=== PATIENT | male | born 2000 | race Hispanic/Latino ===

== ENCOUNTER → 2019-04-27 | Outpatient (CLI) | payer OTHER | END | disposition home or self-care (01) | LOC: RAH 11:18 | PROVIDERS: ATTEND Urology | DX: N13.2 Hydronephrosis with renal and ureteral calculous obstruction (principal); N32.89 Other specified disorders of bladder | CPT/HCPCS: 76770 ==

== ENCOUNTER 2019-05-06 07:18 | Day surgery (SDC) | payer OTHER ==
[2019-05-04 16:17] VITALS: BP 97/51
[2019-05-06] VITALS (12 sets, daily range): BP systolic 91–127; BP diastolic 39–79
[~2019-05-06] VITALS: Ht 177.8 cm; Wt 62.9 kg
[2019-05-06] MEDS: CEFAZOLIN SODIUM 1 GM VIAL IVP SCH ×2 (06:00→10:10)
[2019-05-06] MEDS ORDERED: IOHEXOL-350 50ML VIAL IV ONE (08:28)
[2019-05-06] MEDS ORDERED: LACTATED RINGERS 1000ML 1,000 ML IV ONE (09:21)
[2019-05-06] MEDS ORDERED: PROPOFOL 10 MG/ML 20ML VIAL IV ONE (10:03)
[2019-05-06] MEDS ORDERED: MIDAZOLAM HCL 1 MG/ML 2ML VIAL ONE (10:03)
[2019-05-06] MEDS ORDERED: FENTANYL CITRATE PF 50 MCG/1 ML 2ML VIAL ONE (10:03)
[2019-05-06] MEDS ORDERED: LIDOCAINE PF 2% 5ML ABBOJECT ONE (10:03)
[2019-05-06] MEDS ORDERED: DEXAMETHASONE SOD PHOSPHATE 10MG/ML 1ML VIAL ONE (10:17)
[2019-05-06] MEDS ORDERED: ONDANSETRON HCL 4 MG/2 ML VIAL ONE (10:18)
[2019-05-06] MEDS ORDERED: KETOROLAC TROMETHAMINE 15MG/ML ONE (10:32)
[2019-05-06] MEDS ORDERED: PHENAZOPYRIDINE HCL 200 MG TABLET ONE (12:07)
--- NOTE | 2019-05-06 12:15 | NUR ---
D/C PT LEFT VIA WHEELCHAIR WITH MOTHER IN PVT CAR. SCRIPT GIVEN TO MOM WITH NO PAIN AND D/C INSTRUCTION
== END 2019-05-06 12:30 ==
LOC: DAH 07:18
PROVIDERS: ATTEND Urology
DX: N13.2 Hydronephrosis with renal and ureteral calculous obstruction (principal); R06.83 Snoring
CPT/HCPCS: 52332; 74420; A4358; A4600; C1758; C1769; C2617; J0690; J1100; J1885; J2001; J2250; J2405; J2704; J3010; J7120 ×2; Q9967

== ENCOUNTER → 2020-09-04 | Outpatient (CLI) | payer OTHER | END | disposition home or self-care (01) | LOC: DAH 10:00 → EDSTATUS 11:00 | PROVIDERS: ATTEND Urology | DX: Z01.818 Encounter for other preprocedural examination (principal); N13.0 Hydronephrosis with ureteropelvic junction obstruction; U07.1 COVID-19 | CPT/HCPCS: C9803; U0003 ==

== ENCOUNTER 2020-10-22 10:11 | Day surgery (SDC) | payer OTHER ==
[2020-10-19 11:03] VITALS: BP 116/65
[2020-10-22] VITALS (18 sets, daily range): BP systolic 23–141; BP diastolic 49–86
[~2020-10-22] VITALS: Ht 175.3 cm; Wt 62.1 kg
[~2020-10-22 10:11] MED LIST: CEFTRIAXONE SODIUM 1 GM IVP SCH
[2020-10-22] MEDS ORDERED: LACTATED RINGERS 1000ML 1,000 ML IV ONE (10:55)
[2020-10-22] MEDS ORDERED: FENTANYL CITRATE PF 50 MCG/1 ML 2ML VIAL ONE (12:09)
[2020-10-22] MEDS ORDERED: PROPOFOL 10 MG/ML 20ML VIAL IV ONE ×2 (12:09→16:33)
[2020-10-22] MEDS ORDERED: ROCURONIUM 10MG/1ML SYR 10 MG/ML ML ONE (12:09)
[2020-10-22] MEDS ORDERED: LIDOCAINE PF 2% 5ML ABBOJECT ONE (12:09)
[2020-10-22] MEDS ORDERED: IOHEXOL-350 50ML VIAL IV ONE ×2 (12:28→16:06)
[2020-10-22] MEDS ORDERED: PHENYLEPHRINE HCL 10 MG/ML 1ML VIAL IV ONE (15:47)
[2020-10-22] MEDS ORDERED: SODIUM CHLORIDE 0.9% 10 ML VIAL ONE (15:47)
[2020-10-22] MEDS ORDERED: MEPERIDINE-PF 25 MG/ML SYG ONE (16:37)
[2020-10-22] MEDS ORDERED: ONDANSETRON HCL 4 MG/2 ML VIAL ONE (17:48)
--- NOTE | 2020-10-22 17:48 | NUR ---
ZOFRAN 4 MG GIVEN FOR NAUSEA. MED DOES NOT SHOW UP ON EMAR TO DOCUMENT.
[2020-10-22] MEDS ORDERED: PHENAZOPYRIDINE HCL 200 MG TABLET ONE (18:08)
--- NOTE | 2020-10-22 18:08 | NUR ---
PYRIDIUM 200MG GIVEN PO ORDERED, DOES NOT SHOW UP ON EMAR TO DOCUMENT.
== END 2020-10-22 18:35 | disposition home or self-care (01) ==
LOC: DAH 10:11
PROVIDERS: ATTEND Urology
DX: N13.2 Hydronephrosis with renal and ureteral calculous obstruction (principal); N13.1 Hydronephrosis with ureteral stricture, not elsewhere classified; Z20.828 Contact with and (suspected) exposure to other viral communicable diseases; N21.0 Calculus in bladder; Q62.11 Congenital occlusion of ureteropelvic junction
CPT/HCPCS: 36415; 50590; 52318; 52332; 74018; 74420; 82360; A4215; A4221; A4222; A4223; A4344; A4358; A4663; A4930; A6260; C1758; C1769 ×2; C2617; C9803; J0696; J2001; J2175; J2370; J2405; J2704 ×2; J3010; J7120 ×2; Q9967; U0003

== ENCOUNTER → 2020-11-14 | Outpatient (CLI) | payer OTHER, SELFPAY | END | disposition home or self-care (01) | LOC: RAH 13:30 | PROVIDERS: ATTEND Urology | DX: N20.0 Calculus of kidney (principal) | CPT/HCPCS: 74018 ==

== ENCOUNTER 2021-02-01 07:17 | Day surgery (SDC) | payer OTHER ==
[2021-01-31 09:49] VITALS: BP 119/70
[2021-02-01] VITALS (16 sets, daily range): BP systolic 98–132; BP diastolic 44–76
[~2021-02-01] VITALS: Ht 175.3 cm; Wt 65.4 kg
[2021-02-01] MEDS ORDERED: IOHEXOL-350 50ML VIAL IV ONE (07:39)
[2021-02-01] MEDS ORDERED: LACTATED RINGERS 1000ML 1,000 ML IV ONE (07:53)
[2021-02-01] MEDS: CEFTRIAXONE 1G VIAL IVP ONE ×2 (08:21→09:30)
[2021-02-01] MEDS ORDERED: MIDAZOLAM HCL 1 MG/ML 2ML VIAL ONE (08:42)
[2021-02-01] MEDS ORDERED: LIDOCAINE PF 100MG/5ML (2%) SYRINGE 5ML ONE (08:42)
[2021-02-01] MEDS ORDERED: ONDANSETRON 4MG INJ ONE (08:43)
[2021-02-01] MEDS ORDERED: FENTANYL CITRATE PF 50 MCG/1 ML 2ML VIAL ONE ×2 (08:43→09:52)
[2021-02-01] MEDS ORDERED: ROCURONIUM 10MG/1ML SYR 10 MG/ML ML ONE (08:43)
[2021-02-01] MEDS ORDERED: PROPOFOL 10 MG/ML 20ML VIAL IV ONE (08:43)
[2021-02-01] MEDS ORDERED: PHENAZOPYRIDINE HCL 200 MG TABLET ONE (11:12)
== END 2021-02-01 12:10 | disposition home or self-care (01) ==
LOC: DAH 07:17
PROVIDERS: ATTEND Urology
DX: N13.1 Hydronephrosis with ureteral stricture, not elsewhere classified (principal); K21.9 Gastro-esophageal reflux disease without esophagitis; Z20.828 Contact with and (suspected) exposure to other viral communicable diseases; Z79.899 Other long term (current) drug therapy
CPT/HCPCS: 36415; 52317; 52332; 74420; 82360; A4215; A4221; A4222; A4223; A4358; A4600; A4663; A6260; C1758; C1769; C2617; C9803; J0696; J2001; J2250; J2405; J2704; J3010 ×2; J7120 ×2; Q9967; U0003

== ENCOUNTER 2021-05-03 08:25 | Day surgery (SDC) | payer OTHER ==
[2021-05-02 10:43] VITALS: BP 105/55
[2021-05-03] VITALS (15 sets, daily range): BP systolic 110–136; BP diastolic 47–87
[~2021-05-03] VITALS: Ht 175.3 cm; Wt 63.6 kg
[2021-05-03] MEDS: CEFTRIAXONE 1G VIAL IVP SCH ×2 (08:30→09:25)
[2021-05-03] MEDS ORDERED: LACTATED RINGERS 1000ML 1,000 ML IV ONE (08:42)
[2021-05-03] MEDS ORDERED: IOHEXOL-350 50ML VIAL IV ONE (09:02)
[2021-05-03] MEDS ORDERED: MIDAZOLAM HCL 1 MG/ML 2ML VIAL ONE (09:09)
[2021-05-03] MEDS ORDERED: ONDANSETRON 4MG INJ ONE (09:09)
[2021-05-03] MEDS ORDERED: DEXAMETHASONE SOD PHOSPHATE 10MG/ML 1ML VIAL ONE (09:09)
[2021-05-03] MEDS ORDERED: LIDOCAINE PF 100MG/5ML (2%) SYRINGE 5ML ONE (09:09)
[2021-05-03] MEDS ORDERED: NEOSTIGMINE 5MG/5ML SYR IV ONE (09:10)
[2021-05-03] MEDS ORDERED: FENTANYL CITRATE PF 50 MCG/1 ML 2ML VIAL ONE ×2 (09:10→10:19)
[2021-05-03] MEDS ORDERED: ROCURONIUM 10MG/1ML SYR 10 MG/ML ML ONE (09:10)
[2021-05-03] MEDS ORDERED: GLYCOPYRROLATE 1 MG/5 ML SYRINGE ONE (09:10)
[2021-05-03] MEDS ORDERED: PROPOFOL 10 MG/ML 20ML VIAL IV ONE (09:10)
[2021-05-03] MEDS ORDERED: MEPERIDINE-PF 25 MG/ML SYG ONE ×3 (09:37→11:09)
[2021-05-03] MEDS ORDERED: PHENAZOPYRIDINE HCL 200 MG TABLET ONE (11:54)
== END 2021-05-03 12:20 | disposition home or self-care (01) ==
LOC: DAH 08:25
PROVIDERS: ATTEND Urology
DX: N13.1 Hydronephrosis with ureteral stricture, not elsewhere classified (principal); Z20.822 Contact with and (suspected) exposure to COVID-19; N21.0 Calculus in bladder; N13.2 Hydronephrosis with renal and ureteral calculous obstruction; Z79.899 Other long term (current) drug therapy
CPT/HCPCS: 36415; 52318; 52332; 74420; 82360; 87635; A4215; A4221; A4222; A4223; A4344; A4358; A4510; A4600; A4663; A6260; C1758; C1769; C2617; C9803; J0696; J1100; J2001; J2175 ×3; J2250; J2405; J2704; J2710; J3010 ×2; J3490; J7120 ×2; Q9967